=== PATIENT | male | born 1995 | race African-American/Black ===

== ENCOUNTER 2020-07-07 10:39 | Inpatient (IN) | payer OTHER ==
[~2020-07-07] VITALS: Ht 185.4 cm; Wt 77.1 kg
--- NOTE | ~2020-07-07 | EEG ---
[address] [address] EEG STUDY REPORT Name: YI GRAY Room: [address] IN .R.#: [id number] Admission: 07/07/20 Attend Phys: Thea Gannon MD Discharge: 07/07/20 Date of : [birth year] Report #: [id number] THIS REPORT FOR: //name// CC: JASPREET physician/PCP Thea Gannon DATE OF SERVICE: 07/07/2020 This patient is being evaluated for seizure. EEG was done by placing the electrode by standard 10-20 system of electrode placement. Both referential and sequential montages were used for recording. Background activity in this patient's EEG is about 10 Hz and 30 microvolt. It is a symmetrical activity. The patient went to sleep that is associated with bilaterally symmetrical sleep spindle and vertex sharp waves. Photic stimulation is unremarkable. Throughout the record, no active epileptiform activity was noticed. IMPRESSION: This patient's EEG is within normal limits. No active epileptiform activity was noticed. It might be mentioned EEG can be normal in a patient with seizure disorder. Thank you very much for this referral. By: 1841 Hans Coleman MD /nt
[2020-07-07 10:42] VITALS: BP 127/73
[2020-07-07 10:59] LABS: ABSOLUTE EOSINOPHILS 0.1 thou/uL (0.0-0.7); ABSOLUTE LYMPHOCYTES 1.3 thou/uL (0.8-5.3); ABSOLUTE MONOCYTES 0.3 thou/uL (0.0-1.2); ABSOLUTE NEUTROPHILS 3.1 thou/uL (1.6-8.1); BASOPHILS 0.9 %; EOSINOPHILS 2.8 %; HEMATOCRIT 41.3 % (42.0-52.0); HEMOGLOBIN 14.4 gm/dL (14.0-18.0); LYMPHOCYTES 27.1 %; MCH 36.2 pg (26.0-34.0); MCHC 34.9 g/dL (28.0-37.0); MCV 103.9 fL (80.0-100.0); MONOCYTES 6.1 %; MPV 8.6 fl. (7.2-11.1); NUCLEATED RBCS 0 /100WBC; PLATELET COUNT* 165 thou/uL (150-400); POLYS 63.1 %; RBC 3.98 mil/uL (4.50-6.00); RDW-CV 12.2 % (10.5-14.5); WBC 4.9 thou/uL (4.0-11.0)
[2020-07-07 11:17] LABS: CALCIUM 9.2 mg/dL (8.5-10.1); CREATININE 1.4 mg/dL (0.6-1.3); POTASSIUM 4.2 mmol/L (3.5-5.1)
[2020-07-07 11:21] LABS: ALBUMIN 4.4 g/dL (3.4-5.0); TOTAL BILIRUBIN 0.5 mg/dL (<0.1-1.0); TOTAL PROTEIN 7.6 g/dL (6.4-8.2)
--- NOTE | 2020-07-07 14:37 | EKG ---
[place] [address] ELECTROCARDIOGRAM REPORT Name: YI GRAY Room: [place] [address] ADM IN [facility]#: [id number] Admission: 07/07/20 Attend Phys: Thea Gannon, Discharge: Date of : [birth year] Date of Service: 07/07/20 1047 Report #: [id number] THIS REPORT FOR: //name// [facility] ED Test Date: 2020-07-07 Test Time: 10:47:01 Pat Name: YI GRAY Department: Room: [facility] Gender: M Service Girl: : 1995 Requested By: Suraj Whittaker Order Number: [id number] MD: Naveed Galvan Measurements Intervals [place] Rate: 72 P: 13 NC: 162 QRS: 63 QRSD: 77 T: 54 QT: 369 QTc: 404 Interpretive Statements Sinus rhythm ST elevation suggests acute pericarditis No previous ECG available for comparison Electronically Signed On 07-07-2020 14:37:11 CDT by Naveed Galvan [email or web address] <ELECTRONICALLY SIGNED> By: Naveed Galvan MD, [facility] 07/07/20 1437 1047 1047 Naveed Galvan MD, [facility] /EPI
[2020-07-07 14:43] LABS: AMP/METHAMP Negative (Negative); BARBITURATES Negative (Negative); BENZODIAZEPINES Negative (Negative); COCAINE Negative (Negative); METHADONE Negative (Negative); OPIATES Negative (Negative); PCP Negative (Negative); THC POSITIVE (Negative)
[2020-07-07 17:53] VITALS: BP 123/82
== END 2020-07-07 19:27 | disposition left against medical advice (07) | DRG 684 ==
LOC: M.ERS 10:39 → M.TBA-ER 12:52
PROVIDERS: Family Medicine; ADMIT Internal Medicine; ATTEND Internal Medicine
DX: N17.9 Acute kidney failure, unspecified (principal); F17.210 Nicotine dependence, cigarettes, uncomplicated; F12.90 Cannabis use, unspecified, uncomplicated; E86.0 Dehydration; Z53.29 Procedure and treatment not carried out because of patient's decision for other reasons; Z79.899 Other long term (current) drug therapy; Z20.828 Contact with and (suspected) exposure to other viral communicable diseases

== ENCOUNTER 2021-03-14 07:51 | Emergency (ER) | payer OTHER ==
[~2021-03-14] VITALS: Ht 188 cm; Wt 88.5 kg
[2021-03-14 08:10] LABS: URINE BILIRUBIN NEGATIVE (Negative); URINE BLOOD 2+ (Negative); URINE CLARITY CLEAR; URINE COLOR YELLOW; URINE GLUCOSE-RANDOM NEGATIVE (Negative); URINE KETONES NEGATIVE (Negative); URINE LEUKOCYTES-REFLEX NEGATIVE (Negative); URINE NITRITE-REFLEX NEGATIVE (Negative); URINE PROTEIN 1+ (Negative); URINE UROBILINOGEN 0.2 E.U./dl (0.2-1.0)
[2021-03-14 08:17] LABS: AMP/METHAMP Negative (Negative); BACTERIA-REFLEX 1-9 Few /HPF (None Seen); BARBITURATES Negative (Negative); BENZODIAZEPINES Negative (Negative); CASTS None Seen /LPF (None Seen); COCAINE Negative (Negative); METHADONE Negative (Negative); OPIATES Negative (Negative); PCP Negative (Negative); SQUAMOUS 0-3 Few /LPF (0-3); THC POSITIVE (Negative); URINE RBC 0-2 Rare /HPF (0-2); URINE WBC-REFLEX 0-5 Rare /HPF (0-5)
[2021-03-14 08:18] LABS: CRYSTALS None Seen /LPF (None Seen)
[2021-03-14 08:23] LABS: ABSOLUTE BASOPHILS 0.1 thou/uL (0.0-0.2); ABSOLUTE EOSINOPHILS 0.1 thou/uL (0.0-0.7); ABSOLUTE LYMPHOCYTES 2.6 thou/uL (0.8-5.3); ABSOLUTE MONOCYTES 0.9 thou/uL (0.0-1.2); ABSOLUTE NEUTROPHILS 10.7 thou/uL (1.6-8.1); BASOPHILS 0.4 %; EOSINOPHILS 0.8 %; HEMATOCRIT 41.1 % (42.0-52.0); HEMOGLOBIN 13.8 gm/dL (14.0-18.0); LYMPHOCYTES 18.2 %; MCH 34.6 pg (26.0-34.0); MCHC 33.5 g/dL (28.0-37.0); MCV 103.4 fL (80.0-100.0); MPV 8.7 fl. (7.2-11.1); NUCLEATED RBCS 0 /100WBC; PLATELET COUNT* 220 thou/uL (150-400); POLYS 74.6 %; RBC 3.97 mil/uL (4.50-6.00); RDW-CV 12.6 % (10.5-14.5); WBC 14.4 thou/uL (4.0-11.0)
[2021-03-14 08:40] LABS: CALCIUM 9.1 mg/dL (8.5-10.1); CREATININE 1.8 mg/dL (0.6-1.3); POTASSIUM 3.6 mmol/L (3.5-5.1)
[2021-03-14 08:45] LABS: ALBUMIN 4.5 g/dL (3.4-5.0); TOTAL BILIRUBIN 0.8 mg/dL (<0.1-1.0); TOTAL PROTEIN 7.5 g/dL (6.4-8.2)
[2021-03-14] MEDS ORDERED: ZONEGRAN100 MG PO (10:47)
[2021-03-14 12:16] VITALS: BP 146/92
--- NOTE | 2021-03-15 12:01 | EKG ---
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 : 1995 Requested By: Speedy Núñez Order Number: [id number] MD: Wilberto Lin Measurements Intervals [place] Rate: 126 P: 50 OR: 119 QRS: 69 QRSD: 78 T: -56 QT: 312 QTc: 452 Interpretive Statements Sinus tachycardia Atrial premature complex Borderline repolarization abnormality Baseline wander in lead(s) V2 Compared to ECG 07/07/2020 10:47:01 Atrial premature complex(es) now present Sinus rhythm no longer present ST (T wave) deviation no longer present Electronically Signed On 03-15-2021 12:00:56 CDT by Wilberto Lin [email or web address] <ELECTRONICALLY SIGNED> By: Wilberto Lin MD, FAC 03/15/21 1200 08 0802 Wilberto Lin MD, [facility] /EPI
== END 2021-03-14 12:17 | disposition home or self-care (01) ==
LOC: M.ERS 07:51
PROVIDERS: Emergency Medicine Emergency Medical Services
DX: R56.9 Unspecified convulsions (principal)